=== PATIENT | male | born 1950 | race Caucasian/White ===

== ENCOUNTER 2016-05-23 18:44 | Emergency (ER) | payer OTHER ==
[~2016-05-23] VITALS: Ht 170.2 cm; Wt 80.0 kg
[2016-05-23 18:49] VITALS: BP 111/71; PULSE 64; RESP 17; O2SAT 96
--- NOTE | 2016-05-23 18:55 | ED.REPORT ---
HPI-Chest Pain 40 and Over Date of Service May 23, 2016 ED Provider: Dr. Bahena Pt is a 65 y/o male w/ a hx of HTN, IDDM, presenting to the ED via EMS due to syncopal episode onset prior to arrival. The patient states he had 2 beers and 1 whiskey today at 16:00 and then while he was sitting at the dinner table, he felt lightheaded and lost consciousness and vomited. He also notes sudden onset hearing in his left ear earlier in the day. Pt denies focal numbness or weakness , vision change, SOB, abdominal pain, CP. He smokes 1 cigar per day. Nursing Notes Stated Complaint: SYNCOPE,STEMI Chief Complaint: Chest Pain Nursing Notes Reviewed: Yes Allergies: Coded Allergies: No Known Allergies (Unverified , 05/23/16) General Time Seen by MD: 18:55 Chief Complaint Other (Syncope) Hx Obtained From: Patient, EMS Arrived By: Ambulance Sudden in Onset?: Yes Onset Occurred: Just prior to arrival Symptom Duration: Since onset Severity: Current: No pain currently Severity: Maximum: No pain Past Medical History Past Medical History Hypertension IDDM Past Surgical History Hernia Shoulder Smoking History Never Smoker (1 cigar/day) Social History Alcohol Use: 1-3 per day Drug Use: THC Ambulatory Status Independent Review of Systems Respiratory: Denies: Shortness of breath Cardiovascular: Denies: Chest pain GI: Reports: Vomiting, Denies: Abdominal pain Neurologic: Reports: Change LOC, Lightheaded, Syncope, Denies: Focal weakness, Numbness, Vision change Complete sys rev & neg: except as marked. Ears / Nose / Throat: Reports: Hearing loss left Physical Exam Initial Vital Signs Vital Signs (First) Date Time Temp Pulse Resp B/P Pulse Ox O2 Delivery O2 Flow Rate FiO2 05/23/16 18:49 36.2 64 17 111/71 96 Room Air Initial VS: Reviewed, Vital signs normal Head / Eyes: Atraumatic, Normocephalic, PERRL ENT: Mucous membranes moist, Conjunctiva normal, No scleral icterus Neck: Supple, Full range of motion Extremities: Vascular intact, Neuro intact, No swelling, No tenderness Skin: Warm, Dry, No cyanosis Neurologic: Alert, Oriented, Nonfocal Psychiatric: Mood/affect normal, Behavior normal, Normal thought content General/Constitutional: Awake, Alert, No acute distress, Cooperative, Not toxic appearing Respiratory / Chest: Atraumatic, Breath sounds NL, Breath sounds = bilat, No respiratory distress, No rales, No rhonchi, No wheezing, No retractions, No stridor, No chest tenderness, No chest wall deformity, No crepitus Cardiovascular: Heart rate NL, Regular rhythm, Heart sounds NL, No gallop, No murmurs, No rubs, Cap refill not delayed, Peripheral circulation NL Abdomen: Atraumatic, Soft, Non-tender, No palpable mass Interpretation & Diagnostics Lab Results Interpretation Result Diagram: 05/23/16184905/23/161849 Test 05/23/16 18:50 05/23/16 21:33 White Blood Count 7.8th/mm3 (3.8-10.1) Red Blood Count 4.70mil/mm3 (4.40-5.80) Hemoglobin 16.2g/dL (13.8-17.2) Hematocrit 45.1% (41.0-50.0) Mean Corpuscular Volume 96.0fL (81-100) Mean Corpuscular Hemoglobin 34.5pg (27.0-35.0) Mean Corpuscular Hemoglobin Concent 35.9% (32.0-37.0) Red Cell Distribution Width 12.0% (12.3-15.4) Platelet Count 312bil/L (150-400) Neutrophils (%) (Auto) 34.3% (40-74) Lymphocytes (%) (Auto) 48.1% (14-46) Monocytes (%) (Auto) 11.8% (4-12) Eosinophils (%) (Auto) 4.0% (0-5) Basophils (%) (Auto) 1.3% (0-3) Hold Purple Top Tube Received (Received) Prothrombin Time 10.4sec (8.1-12.5) Prothromb Time International Ratio 0.97ratio Activated Partial Thromboplast Time 23.5sec (22.8-33.0) D-Dimer < 0.5mg/L (<0.50) Hold Blue Top Tube Received (Received) Sodium Level 130mEq/L (134-144) Potassium Level 3.5mEq/L (3.5-5.2) Chloride Level 88mEq/L (97-108) Carbon Dioxide Level 27mmol/L (18-29) Blood Urea Nitrogen 10mg/dL (8-27) Creatinine 0.76mg/dL (0.76-1.27) Estimat Glomerular Filtration Rate 110mL/min (>59) Glucose Level 169mg/dL (60-99) Calcium Level 9.7mg/dL (8.5-10.1) Magnesium Level 2.0mg/dL (1.6-2.6) Total Bilirubin 0.9mg/dL (0.0-1.2) Aspartate Amino Transf (AST/SGOT) 30U/L (0-50) Alanine Aminotransferase (ALT/SGPT) 33U/L (0-44) Alkaline Phosphatase 61U/L (25-160) Pro-B-Type Natriuretic Peptide 36.15pg/mL (0-210) Total Protein 7.2g/dL (6.4-8.4) Albumin 4.7g/dL (3.4-5.0) Hold Red Top Tube Received (Received) Hold [place] Top Tube Received (Received) Alcohol, Quantitative 77mg/dL (0-10) Troponin T 0.010ug/L (0.0-0.011) ECG Interpretation Time: 19:00 Interpreted by: ED physician Normal ECG Interpretation: Normal ECG w/ rate of... (67), Normal rate, Normal sinus rhythm, No acute ischemic changes, Normal QRS, Normal axis, Normal intervals, Adequate tracing X-Ray Chest Interpretation Chest Xray Interpretation: IMPRESSION: No acute disease is seen. Lungs are clear. Dictated by: Adam Funez M.D. on 05/23/2016 at 19:22 Approved by: Adam Funez M.D. on 05/23/2016 at 19:23 View: Portable, 1 view Interpretation / Wet Read by: Interpret - Radiologist Re-Eval/Medical Decision Med Decision/Clinical Course 65-year-old presents after syncopal episode. Onset was after moderate amount of alcohol and some antecedent dehydration. He has no particular recollection. Cardiac enzymes are negative, dimer is negative, no other obvious etiology is apparent. Negative two-step rule out accomplished and he is discharged in stable condition for follow-up with PCP. Stress testing as an outpatient to be considered. Time of Eval: 21:22 Re-Evaluation/Progress Note: Pt rechecked. He remains asymptomatic at this time. Vitals signs unchanged. Informed pt of need for serial troponin. Time of Eval: 22:54 Patient Status: Condition resolved, Complete relief Re-Evaluation/Progress Note: Pt rechecked. Discussed negative labs. Informed pt of plan for treatment. Pt understands and agrees with plan for treatment. F/U instructions and RTER warnings given. All questions addressed. Counseled Regarding: Diagnosis, Lab results, Need for follow-up, When/why to return to ED Discharge & Departure Primary Impression: Syncope Syncope type: unspecified Qualified Code: R55 - Syncope and collapse Disposition: Home Discharge Condition All VS Reviewed: Yes Condition: Stable Patient Instructions: Syncope (ED) Additional Instructions: We do not have any evidence of a cardiac event or a stroke. Likewise there is no evidence of clot I suspect this was partly due to alcohol, and partly due to dehydration and changes in your blood pressure with upright posture. Moderate alcohol. Follow up with your doctor in the office. Return promptly if any immediate issues. Your doctor may wish to order a stress test to be done as an outpatient. Referrals: [facility] Scribe Attestation Portions of this note were transcribed by Janes Granados. I, Dr. Bahena personally performed the history, physical exam and medical decision-making; I reviewed and confirmed the accuracy of the information in the transcribed note. Signed by Saeed Bradley, 05/23/16 - 1999 Sam Bahena MD May 23, 2016 18:55 JANES GRANADOS May 23, 2016 19:03
[2016-05-23] MEDS ORDERED: 0.9% Sodium Chloride 1,000 ML IV ONE (19:02)
[2016-05-23 19:08] LABS: BASOPHILS % (AUTO) 1.3 % (0-3); MONOCYTES % (AUTO) 11.8 % (4-12); Mean Corpuscular Hemoglobin 34.5 pg (27.0-35.0); NEUTROPHILS % (AUTO) 34.3 % (40-74); Platelet Count 312 bil/L (150-400)
--- NOTE | 2016-05-23 19:24 | DRSVH ---
PROCEDURE: X-RAY CHEST ONE VIEW, PORTABLE ([id number]) INDICATIONS: syncope TECHNIQUE: One view of the chest was acquired. COMPARISON: None. FINDINGS: Surgical changes and devices: quality assurance monitor chassis leads are present over the chest. Oxygen tubing is pres ent. Lungs and pleura: No pleural effusions or pneumothorax. Lungs are clear. Mediastinum: Mediastinal contours appear normal. Aorta is mildly elongated. Heart size is normal. Bones and chest wall: No suspicious bony lesions. Overlying soft tissues appear unremarkable. IMPRESSION: No acute disease is seen. Lungs are clear. Dictated by: Adam Funez M.D. on 05/23/2016 at 19:22 Approved by: Adam Funez M.D. on 05/23/2016 at 19:23
[2016-05-23 19:26] LABS: D-DIMER < 0.5 mg/L (<0.50); INR 0.97 ratio
[2016-05-23 19:32] LABS: TROPONIN T < 0.010 ug/L (0.0-0.011)
[2016-05-23 19:42] VITALS: BP 100/66; PULSE 67; RESP 19; O2SAT 96
[2016-05-23 21:57] VITALS: BP 108/67; PULSE 66; RESP 16; O2SAT 95
[2016-05-23 23:12] VITALS: BP 119/73; PULSE 65; RESP 20; O2SAT 98
== END 2016-05-23 23:13 | disposition home or self-care (01) ==
LOC: SED 18:44 → EDBD 18:44 → SED 23:13
DX: R55 Syncope and collapse (principal); I10 Essential (primary) hypertension; E11.9 Type 2 diabetes mellitus without complications; F17.200 Nicotine dependence, unspecified, uncomplicated; Z79.4 Long term (current) use of insulin
CPT/HCPCS: 36415; 71010; 80053; 83735; 83880; 84484; 85025; 85379; 85610; 85730; 93005; 96360; 99285; G0480; J7030